=== PATIENT | female | born 1955 | race Caucasian/White ===

== ENCOUNTER 2019-08-04 08:26 | Emergency (ER) | payer OTHER, SELFPAY ==
[2019-08-04] VITALS (9 sets, daily range): BP systolic 119–179; BP diastolic 66–91; PULSE 80–98; RESP 16–20; TEMP 36.9; O2SAT 94–97; BMI 32.3
--- NOTE | 2019-08-04 08:44 | ED.CHESTPAIN ---
HPI - Chest Pain General Chief Complaint: Chest Pain Stated Complaint: UPPER CHEST PAIN UPPER AND LOWER JAW Time Seen by Provider: 08/04/19 08:44 Source: patient Mode of arrival: Ambulatory History of Present Illness HPI narrative: 64-year-old woman without significant medical history presents with chest pain and tightness. She 1st noted right shoulder pain last night around 11:00 p.m. she was getting ready for bed. It bothered her enough and began radiating up into her neck that she got up and reposition herself in a recliner chair in the front room. She noted when she did get up to walk around her brush her teeth that the pain got a bit worse however completely resolved while she was still up and moving. She had been doing some light gardening during the day and she attributed this as the source of her presumed musculoskeletal pain. The pain continued overnight and is described as more a pressure tightness worse with a very deep breath and with activity will radiate up into the neck and jaws both side no diaphoresis, dyspnea, left-sided pain and nothing that was sharp or stabbing. When her got up this morning and she explained the course of her symptoms overnight she was brought into the emergency department for further evaluation. Of note, her sister had a previously unremarkable past medical history until last April when she had some mild similar type chest pains ended up with a 4 way CABG and subsequent multiple pulmonary emboli with negative genetic testing following. Review of Systems Review of Systems Narrative: Denies ? fever ? cough ? cold ? chills ? chest pain ? dyspnea ? orthopnea ? wheezing ? abdominal pain ? change to bowel or bladder habits ? nausea vomiting ? skin changes ? rashes Patient History Medical History (Updated 08/04/19 @ 10:26 by Izzy Houston MD) Gout (Acute) Trigger finger (Acute) Surgical History (Updated 08/04/19 @ 09:04 by Izzy Houston MD) H/O tubal ligation (Acute) History of repair of congenital cleft palate (Acute) History of tonsillectomy (Acute) Social History Smoking Status: Former smoker Smoking Status: Former smoker Alcohol type: wine and hard liquor Substance Use Type: does not use Exam Narrative Exam Narrative: General: Healthy appearing, in no acute distress. Able to give a complete and coherent history. Well-nourished well-developed HEENT: Moist mucous membranes, normal sclera with reactive pupils, Neck: No JVD, supple Respiratory: Lungs are clear to auscultation, no wheezing no rales no rhonchi. Full and symmetrical air movement Cardiac: Regular rate and rhythm no murmurs no bruits Abdomen: Soft nontender good bowel tones, no flank pain Skin: Warm and dry, no rashes Neurologic: Grossly neurologically intact with no obvious asymmetries or abnormalities Extremities: No trauma, well perfused Psych: Cooperative, appropriate insight and affect Initial Vital Signs Initial Vital Signs: Vital Signs Temperature 98.4 F 08/04/19 08:29 Pulse Rate 93 H 08/04/19 08:29 Respiratory Rate 20 08/04/19 08:29 Blood Pressure 179/91 H 08/04/19 08:29 Pulse Oximetry 97 08/04/19 08:29 Course Orders Ordered: ED Orders 08/04/19 09:00 XR chest 1V Stat 08/04/19 09:28 Complete Blood Count AUTO DIFF Stat Comprehensive Metabolic Panel Stat D Dimer Stat Lipase Stat Troponin & CK Cardiac Panel Stat Discontinued Medications Aspirin (Aspirin Chew) 324 mg PO NOW ONE Stop: 08/04/19 09:01 Last Admin: 08/04/19 09:28 Dose: 324 mg Documented by: DOMINICKSENAdelita Sodium Chloride (Normal Saline 0.9%) 1,000 mls @ 150 mls/hr IV CONT SP Last Infusion: 08/04/19 10:43 Dose: 0 mls/hr Documented by: Infusion: 08/04/19 10:42 Dose: 0 mls/hr Documented by: Infusion: 08/04/19 10:41 Dose: 0 mls/hr Documented by: Admin: 08/04/19 09:31 Dose: 150 mls/hr Documented by: SANTIAGO Ketorolac Tromethamine (Toradol) 15 mg IV NOW ONE Stop: 08/04/19 10:13 Last Admin: 08/04/19 10:18 Dose: 15 mg Documented by: ROBIN Nitroglycerin (Nitrostat) 0.4 mg SL [id number] PRN PRN Reason: Chest Pain Last Admin: 08/04/19 09:49 Dose: 0.4 mg Documented by: Admin: 08/04/19 09:42 Dose: 0.4 mg Documented by: Admin: 08/04/19 09:28 Dose: 0.4 mg Documented by: SANTIAGO Vital Signs Vital signs: Vital Signs - 8 hr 08/04/19 09:28 08/04/19 09:32 08/04/19 09:37 Pulse Rate 81 98 H 92 H Respiratory Rate 18 18 Blood Pressure 148/86 H Blood Pressure [Left Arm] 132/81 133/70 Pulse Oximetry 95 08/04/19 09:42 08/04/19 09:49 08/04/19 10:00 Pulse Rate 92 H 88 81 Respiratory Rate 18 Blood Pressure 133/70 127/66 Blood Pressure [Left Arm] 128/77 Pulse Oximetry 94 08/04/19 10:21 08/04/19 10:30 Pulse Rate 80 81 Respiratory Rate 20 16 Blood Pressure Blood Pressure [Left Arm] 130/81 119/66 Pulse Oximetry 96 96 MDM - Chest Pain Medical Records Data Attestation: I reviewed the patient's medical records. Lab Data Attestation: I reviewed the patient's lab results. Result diagrams: 08/04/19 09:28 08/04/19 09:28 Labs: Lab Results 08/04/19 08/04/19 08/04/19 Range/Units 09:28 09:28 09:28 WBC 15.8 H (4.5-11.0) X10^3/uL RBC 4.70 (4.0-5.2) X10^6/uL Hgb 14.5 (12.0-16.0) g/dL Hct 42.3 (36-46) % MCV 90.0 (80-100) fL MCH 30.8 (26-34) PG MCHC 34.2 (30-36) % RDW 13.0 (11.6-14.8) % Plt Count 188 (150-400) X10^3/uL Neut % (Auto) 77.9 H (50-75) % Lymph % (Auto) 15.2 L (25-40) % [place] % (Auto) 6.7 (3-14) % Eos % (Auto) 0.0 L (2-4) % Baso % (Auto) 0.2 (0-2) % Neut # (Auto) 83933 H (8626-1799) /uL Lymph # (Auto) 2400 (6557-5171) /uL [place] # (Auto) 1100 H (0-900) /uL Eos # (Auto) 0 (0-450) /uL Baso # (Auto) 0 (0-100) /uL D-Dimer 216 (<230) ng/mL Sodium 139 (137-145) mmol/L Potassium 4.2 (3.4-5.1) mmol/L Chloride 106 (98-107) mmol/L Carbon Dioxide 24 (22-32) mmol/L BUN 17 (7-17) mg/dL Creatinine 0.75 (0.52-1.04) mg/dL Estimated GFR > 60.0 (>60) mL/min BUN/Creatinine Ratio 22.7 H (6-22) Glucose 127 H (80-110) mg/dL Calcium 9.7 (8.4-10.2) mg/dL Total Bilirubin 0.5 (0.2-1.3) mg/dL AST 22 (14-36) IU/L ALT 17 (<35) IU/L Alkaline Phosphatase 98 (38-126) U/L Total Creatine Kinase 55 (30-135) U/L CK-MB (CK-2) TNP CK-MB (CK-2) Rel Index TNP Troponin I < 0.012 (0.01-0.034) ng/mL Total Protein 7.8 (6.3-8.2) g/dL Albumin 4.3 (3.5-5.0) g/dL Globulin 3.5 (1.7-4.1) g/dL Albumin/Globulin Ratio 1.2 (1.0-2.8) Lipase 102 (23-300) U/L Imaging Data Chest x-ray: Radiologist's Impression: IMPRESSION: No evidence acute pulmonary process. Dictated by: Kevin Ellsworth M.D. on 08/04/2019 at 9:17 ECG Data Attestation: I personally reviewed and interpreted this ECG as follows: Interpretation: Sinus rhythm at a rate of 94 Normal axis, normal intervals No acute ischemic changes MDM Narrative Medical decision making narrative: 64-year-old woman presents with atypical chest pain that started in the right shoulder in his bothering her all night. It did not respond to nitroglycerin. Labs do not suggest of pulmonary embolism or acute coronary syndrome/STEMI. Second troponin is not repeated as her symptoms have been present for almost 11 hours at time of 1st draw. Significantly worse with a deep breath suggests a pleuritic component and the slight increase in white cell count and suggests an infectious component as well. Discharge Plan Departure Patient Disposition: Home Clinical Impression: Pleurisy Discharge Date/Time: 08/04/19 10:55 Instructions: DI for Pleurisy Activity Restrictions/Additional Instructions: Thank you for coming in today Your workup was very reassuring. There is no evidence that you are having a heart attack or heart attack type syndrome. There is no evidence for pulmonary embolism or other blood clots. Here chest x-ray was nice and normal with no obvious lung infiltrates and a normal size and shape part. Your blood work was equally reassuring. Your white blood cell count was slightly elevated and this can indicate an infection. The most common cause of pleurisy is infection. It is safe to exercise. Please treat your pleuritic pain with ibuprofen. Using 400 mg of ibuprofen (2 [id number] pills) and 1 Tylenol every 6 hours can be very helpful in controlling pain. I would expect the symptoms to be present but improving for about a week If you feel like you are getting worse or you are having more difficulty breathing, please feel free to return to the emergency department I hope you feel better
--- NOTE | 2019-08-04 09:00 | DI.RAD.S_ITS ---
PROCEDURE: XR CHEST 1V INDICATIONS: chest pain TECHNIQUE: One view of the chest was acquired. COMPARISON: None. FINDINGS: Surgical changes and devices: None. Lungs and pleura: Lungs are clear. No pleural effusions or pneumothorax. Mediastinum: Mediastinal contours appear normal. Heart size is normal. Bones and chest wall: No suspicious bony lesions. Overlying soft tissues appear unremarkable. IMPRESSION: No evidence acute pulmonary process. Dictated by: Kevin Ellsworth M.D. on 08/04/2019 at 9:17 Approved by: Kevin Ellsworth M.D. on 08/04/2019 at 9:17
[2019-08-04] MEDS: ASPIRIN 81 MG CHEW TAB 324 MG PO (09:28)
[2019-08-04] MEDS: NITROGLYCERIN 0.4 MG SL TAB SL ×3 (09:28→09:49)
[2019-08-04 09:31] LABS: Add Manual Diff / Slide Review NO; Basophils Absolute Auto 0 /uL (0-100); Basophils Percent Auto 0.2 % (0-2); Eosinophils Absolute Auto 0 /uL (0-450); Hematocrit 42.3 % (36-46); Hemoglobin 14.5 g/dL (12.0-16.0); Lymphocytes Absolute Auto 2400 /uL (1100-4500); Lymphocytes Percent Auto 15.2 % (25-40); Mean Corpuscular HGB Conc 34.2 % (30-36); Mean Corpuscular Hemoglobin 30.8 PG (26-34); Monocytes Absolute Auto 1100 /uL (0-900); Monocytes Percent Auto 6.7 % (3-14); Neutrophils Absolute Auto 12300 /uL (1500-7000); Neutrophils Percent Auto 77.9 % (50-75); Platelet Count 188 X10^3/uL (150-400); White Blood Cell Count 15.8 X10^3/uL (4.5-11.0)
[2019-08-04] MEDS: SODIUM CHLORIDE 0.9% 1,000 ML 150 ML IV (09:31)
[2019-08-04 09:40] LABS: D Dimer 216 ng/mL (<230)
[2019-08-04 09:51] LABS: Alanine Aminotransferase 17 IU/L (<35); Albumin 4.3 g/dL (3.5-5.0); Albumin Globulin Ratio 1.2 (1.0-2.8); Alkaline Phosphatase 98 U/L (38-126); Aspartate Aminotransferase 22 IU/L (14-36); BUN Creatinine Ratio 22.7 (6-22); Bilirubin Total 0.5 mg/dL (0.2-1.3); Blood Urea Nitrogen 17 mg/dL (7-17); Calcium 9.7 mg/dL (8.4-10.2); Carbon Dioxide 24 mmol/L (22-32); Chloride 106 mmol/L (98-107); Creatine Kinase 55 U/L (30-135); Estimated Glomerular Filt Rate > 60.0 mL/min (>60); Globulin 3.5 g/dL (1.7-4.1); Glucose 127 mg/dL (80-110); HEMOLYSIS < 15 (0-50); Lipase 102 U/L (23-300); Potassium 4.2 mmol/L (3.4-5.1); Sodium 139 mmol/L (137-145); Total Protein 7.8 g/dL (6.3-8.2)
[2019-08-04 10:02] LABS: Troponin I < 0.012 ng/mL (0.01-0.034)
[2019-08-04] MEDS: KETOROLAC 60 MG/2 ML VIAL 15 MG IV (10:18)
== END 2019-08-04 10:55 | disposition home or self-care (01) ==
PROVIDERS: Emergency Provider Emergency Medicine
DX: R09.1 Pleurisy (principal); R07.9 Chest pain, unspecified
CPT/HCPCS: 36415; 71045; 80053; 82550; 83690; 84484; 85025; 85379; 96361; 96374; 99284; J1885

== ENCOUNTER 2019-12-09 08:45 | Emergency (ER) | payer OTHER, SELFPAY ==
[2019-12-09] VITALS (7 sets, daily range): BP systolic 118–167; BP diastolic 63–77; PULSE 62–81; RESP 16–18; TEMP 36.8; O2SAT 94–99; BMI 31.9
--- NOTE | 2019-12-09 09:29 | ED.PEDGIA ---
HPI - Pediatric GI General Chief Complaint: Abdominal Pain Stated Complaint: abomdinal pain Time Seen by Provider: 12/09/19 09:09 Source: patient Mode of arrival: Ambulatory Limitations: no limitations History of Present Illness HPI narrative: The patient developed bandlike upper abdominal pain in the middle night last night. Pain started several hours after dinner, this was taken with vegetables. After initially also had ice cream. Although she describes the pain is a bandlike sensation upper abdomen, the focus of the pain is the right upper quadrant. She has nausea without emesis. She has no diarrhea constipation. She has a prior history of kidney stones, she denies dysuria or hematuria. She has no pain radiating to the lower abdomen. The pain does not radiate to the back. She has a prior history of hepatitis-A as a teenager, she has no chronic hepatic issues. She has a history of tubal ligation, no other abdominal or pelvic surgeries. She denies recent illness. She has no URI symptoms, cough or dyspnea. She has had no fever. Related Data Allergies Allergy/AdvReac Type Severity Reaction Status Date / Time spironolactone AdvReac Verified 12/09/19 09:56 Pediatric Review of Systems Limitations: All systems reviewed & are unremarkable except as noted in HPI and below Constitutional: Denies fever and chills Eyes: Reports other (No eye complaints) ENT: Reports other (No ENT complaints.); Denies sore throat Cardiovascular: Denies chest pain and palpitations Respiratory: Denies cough and dyspnea Gastrointestinal: Reports abdominal pain and nausea; Denies vomiting, diarrhea and constipation Genitourinary: Reports other (No hematuria.); Denies dysuria and polyuria Musculoskeletal: Denies back pain Integumentary: Denies rash and lesions Neurological: Denies headache, weakness, vertigo and numbness Psychiatric: Denies change in energy level Endocrine: Denies fatigue Hematological/Lymphatic: Denies easy bleeding Allergic/Immunologic: Denies urticaria Patient History Medical History Gout (Acute) Trigger finger (Acute) Surgical History H/O tubal ligation (Acute) History of repair of congenital cleft palate (Acute) History of tonsillectomy (Acute) Social History Smoking Status: Former smoker Smoking Status: Former smoker Alcohol type: wine and hard liquor Substance Use Type: does not use Pediatric Exam Initial Vital Signs Initial Vital Signs: Vital Signs Temperature 98.2 F 12/09/19 09:10 Pulse Rate 79 12/09/19 09:10 Respiratory Rate 18 12/09/19 09:10 Blood Pressure 167/77 H 12/09/19 09:10 Pulse Oximetry 99 12/09/19 09:10 General Limitations: no limitations General appearance: well-appearing, well-hydrated and well-nourished Head Head exam: normocephalic and atraumatic Eye Eye exam: Present normal appearance and other (No icterus) ENT ENT exam: normal oropharynx and mucous membranes moist Neck Neck exam: Present normal inspection and full ROM; Absent lymphadenopathy and thyromegaly Chest Chest inspection: Present normal inspection and symmetric chest wall rise Respiratory Respiratory exam: Present normal lung sounds bilaterally Cardiovascular Cardiovascular exam: Present regular rate, normal rhythm and normal heart sounds Abdominal Exam Abdominal exam: Present other (Obese. Right upper quadrant tenderness with guarding. No palpable masses. No distention. Normal bowel sounds. No lower abdominal tenderness.) Back Exam Back exam: Absent tenderness Neurological Exam Neurological exam: Present alert, oriented X3 and other (Motor and sensory exam are grossly normal.) Skin Skin exam: Present warm, dry, intact and normal color; Absent rash, cyanosis and diaphoresis Course Course Course Narrative: The patient has gallstones, with concern for evolving cholecystitis. After being medicated in the ER she is pain free. I have consult with surgery, Dr. Valdovinos, to expedite outpatient follow-up. Dr. Valdovinos has agreed to see the patient in clinic. Orders Ordered: ED Orders 12/09/19 09:30 Complete Blood Count AUTO DIFF Stat Comprehensive Metabolic Panel Stat Lipase Stat 12/09/19 09:38 US abdomen limited Stat EKG-12 Lead Stat Hydromorphone HCl (Dilaudid) 1 mg IV Q15MIN PRN PRN Reason: Pain, Severe (7-10) Last Admin: 12/09/19 10:02 Dose: 1 mg Documented by: RNDALE Sodium Chloride (Normal Saline 0.9%) 1,000 mls @ 150 mls/hr IV CONT SP Last Admin: 12/09/19 09:59 Dose: 150 mls/hr Documented by: MEGAN Discontinued Medications Ondansetron HCl (Zofran) 4 mg IV NOW ONE Stop: 12/09/19 09:38 Last Admin: 12/09/19 10:03 Dose: 4 mg Documented by: MEGAN Vital Signs Vital signs: Vital Signs - 8 hr 12/09/19 09:10 12/09/19 10:28 12/09/19 10:30 Temperature 98.2 F Pulse Rate 79 80 81 Respiratory Rate 18 Blood Pressure 167/77 H 122/72 Pulse Oximetry 99 95 94 12/09/19 11:00 12/09/19 11:30 12/09/19 12:00 Temperature Pulse Rate 62 64 Respiratory Rate Blood Pressure 118/64 119/63 124/66 Pulse Oximetry 94 98 12/09/19 12:30 Temperature Pulse Rate Respiratory Rate 16 Blood Pressure Pulse Oximetry Medical Decision Making Lab Data Result diagrams: 12/09/19 09:30 12/09/19 09:30 Labs: Lab Results 12/09/19 12/09/19 Range/Units 09:30 09:30 WBC 14.7 H (4.5-11.0) X10^3/uL RBC 4.67 (4.0-5.2) X10^6/uL Hgb 14.5 (12.0-16.0) g/dL Hct 42.0 (36-46) % MCV 90.0 (80-100) fL MCH 31.1 (26-34) PG MCHC 34.6 (30-36) % RDW 13.1 (11.6-14.8) % Plt Count 196 (150-400) X10^3/uL Neut % (Auto) 85.2 H (50-75) % Lymph % (Auto) 11.0 L (25-40) % [place] % (Auto) 3.6 (3-14) % Eos % (Auto) 0.0 L (2-4) % Baso % (Auto) 0.2 (0-2) % Neut # (Auto) 95625 H (0284-7303) /uL Lymph # (Auto) 1600 (4793-6430) /uL [place] # (Auto) 500 (0-900) /uL Eos # (Auto) 0 (0-450) /uL Baso # (Auto) 0 (0-100) /uL Sodium 137 (137-145) mmol/L Potassium 4.3 (3.4-5.1) mmol/L Chloride 103 (98-107) mmol/L Carbon Dioxide 25 (22-32) mmol/L BUN 19 H (7-17) mg/dL Creatinine 0.77 (0.52-1.04) mg/dL Estimated GFR > 60.0 (>60) mL/min BUN/Creatinine Ratio 24.7 H (6-22) Glucose 146 H (80-110) mg/dL Calcium 9.8 (8.4-10.2) mg/dL Total Bilirubin 0.5 (0.2-1.3) mg/dL AST 26 (14-36) IU/L ALT 23 (<35) IU/L Alkaline Phosphatase 102 (38-126) U/L Total Protein 7.8 (6.3-8.2) g/dL Albumin 4.5 (3.5-5.0) g/dL Globulin 3.3 (1.7-4.1) g/dL Albumin/Globulin Ratio 1.4 (1.0-2.8) Lipase 74 (23-300) U/L Imaging Data US - abdomen: Radiologist's Impression: [place] [address] Ultrasound Report Signed Patient: Nat Fields [facility]#: [id number] : 8Acct:[id number] Age/Sex: 64 / FDate of Service: 12/09/19 Loc: ED Accession Number: [id number] Procedure: US abdomen limited Ordering Provider: Zeke Zavala MD PROCEDURE: US ABDOMEN LIMITED INDICATIONS: RUQ pain TECHNIQUE: Real-time scanning was performed of the abdominal and retroperitoneal organs, with image documentation. COMPARISON: None. FINDINGS: Liver: Increased echogenicity is nonspecific, but most commonly encountered in the setting of diffuse hepatic steatosis. Gallbladder: Multiple small shadowing stones are seen within the gallbladder. The gallbladder wall is normal in thickness. There is no acute pericholecystic fluid. Sonographic Wilson sign was noted to be positive at the time of the exam. Biliary ducts: Intrahepatic bile ducts are non-dilated. Extrahepatic bile duct caliber measures 7 mm. Normal is 6-7 mm or less in diameter, or 10 mm or less post-cholecystectomy. Pancreas: Visualized portions of the pancreas are sonographically normal. Kidneys: There is possible mild right hydronephrosis versus extrarenal pelvis. No definite solid renal mass is seen. Miscellaneous: No free abdominal fluid. The bladder appears normal. IMPRESSION: 1. Cholelithiasis with positive sonographic Wilson sign, but without additional signs of cholecystitis. Recommend correlation with clinical and laboratory findings. The common bile duct is borderline in size. There is no intrahepatic biliary ductal dilatation. 2. Increased hepatic echogenicity noted possibly related to hepatic steatosis but other sources of hepatocellular disease cannot be excluded. Recommend clinical correlation. 3. Mild right hydronephrosis versus extrarenal pelvis. Dictated by: Kuldeep Zamora M.D. on 12/09/2019 at 10:32 Approved by: Kuldeep Zamora M.D. on 12/09/2019 at 10:42 Discharge Plan Departure Patient Disposition: Home Clinical Impression: Biliary colic Instructions: DI for Gallstones Activity Restrictions/Additional Instructions: You should be on a very low-fat diet. Drink plenty of fluids and stay well hydrated. I will give you contact information for a local surgeon, Dr. Siddiqui. Call for an appointment. If you have increasing pain or fever for seen surgery, return here. Referrals: Carlie Valdovinos MD [Physician] -
--- NOTE | 2019-12-09 09:38 | DI.US.S_ITS ---
PROCEDURE: US ABDOMEN LIMITED INDICATIONS: RUQ pain TECHNIQUE: Real-time scanning was performed of the abdominal and retroperitoneal organs, with image documentation. COMPARISON: None. FINDINGS: Liver: Increased echogenicity is nonspecific, but most commonly encountered in the setting of diffuse hepatic steatosis. Gallbladder: Multiple small shadowing stones are seen within the gallbladder. The gallbladder wall is normal in thickness. There is no acute pericholecystic fluid. Sonographic Wilson sign was noted to be positive at the time of the exam. Biliary ducts: Intrahepatic bile ducts are non-dilated. Extrahepatic bile duct caliber measures 7 mm. Normal is 6-7 mm or less in diameter, or 10 mm or less post-cholecystectomy. Pancreas: Visualized portions of the pancreas are sonographically normal. Kidneys: There is possible mild right hydronephrosis versus extrarenal pelvis. No definite solid renal mass is seen. Miscellaneous: No free abdominal fluid. The bladder appears normal. IMPRESSION: 1. Cholelithiasis with positive sonographic Wilson sign, but without additional signs of cholecystitis. Recommend correlation with clinical and laboratory findings. The common bile duct is borderline in size. There is no intrahepatic biliary ductal dilatation. 2. Increased hepatic echogenicity noted possibly related to hepatic steatosis but other sources of hepatocellular disease cannot be excluded. Recommend clinical correlation. 3. Mild right hydronephrosis versus extrarenal pelvis. Dictated by: Kuldeep Zamora M.D. on 12/09/2019 at 10:32 Approved by: Kuldeep Zamora M.D. on 12/09/2019 at 10:42
[2019-12-09 09:43] LABS: Add Manual Diff / Slide Review NO; Basophils Absolute Auto 0 /uL (0-100); Basophils Percent Auto 0.2 % (0-2); Eosinophils Absolute Auto 0 /uL (0-450); Hemoglobin 14.5 g/dL (12.0-16.0); Lymphocytes Absolute Auto 1600 /uL (1100-4500); Mean Corpuscular HGB Conc 34.6 % (30-36); Mean Corpuscular Hemoglobin 31.1 PG (26-34); Monocytes Absolute Auto 500 /uL (0-900); Monocytes Percent Auto 3.6 % (3-14); Neutrophils Absolute Auto 12500 /uL (1500-7000); Neutrophils Percent Auto 85.2 % (50-75); Platelet Count 196 X10^3/uL (150-400); Red Blood Cell Count 4.67 X10^6/uL (4.0-5.2); Red Cell Distribution Width 13.1 % (11.6-14.8); White Blood Cell Count 14.7 X10^3/uL (4.5-11.0)
[2019-12-09 09:49] LABS: Alanine Aminotransferase 23 IU/L (<35); Albumin 4.5 g/dL (3.5-5.0); Albumin Globulin Ratio 1.4 (1.0-2.8); Alkaline Phosphatase 102 U/L (38-126); Aspartate Aminotransferase 26 IU/L (14-36); BUN Creatinine Ratio 24.7 (6-22); Bilirubin Total 0.5 mg/dL (0.2-1.3); Blood Urea Nitrogen 19 mg/dL (7-17); Calcium 9.8 mg/dL (8.4-10.2); Carbon Dioxide 25 mmol/L (22-32); Chloride 103 mmol/L (98-107); Estimated Glomerular Filt Rate > 60.0 mL/min (>60); Globulin 3.3 g/dL (1.7-4.1); Glucose 146 mg/dL (80-110); HEMOLYSIS 22 (0-50); Lipase 74 U/L (23-300); Potassium 4.3 mmol/L (3.4-5.1); Sodium 137 mmol/L (137-145); Total Protein 7.8 g/dL (6.3-8.2)
[2019-12-09] MEDS: SODIUM CHLORIDE 0.9% 1,000 ML 150 ML IV (09:59)
[2019-12-09] MEDS: HYDROMORPHONE 1 MG INJ IV (10:02)
[2019-12-09] MEDS: ONDANSETRON 4 MG/2 ML INJ IV (10:03)
== END 2019-12-09 13:51 | disposition home or self-care (01) ==
PROVIDERS: Emergency Provider Emergency Medicine
DX: K80.50 Calculus of bile duct without cholangitis or cholecystitis without obstruction (principal)
CPT/HCPCS: 36415; 76705; 80053; 83690; 85025; 93005; 96374; 96375; 99284; J1170; J2405

== ENCOUNTER → 2020-01-08 14:34 | Outpatient (CLI) | payer OTHER, SELFPAY ==
[2020-01-09 13:16] LABS: COVID19 Sendout Not Detected (Not Detect)
== END ==
PROVIDERS: PCP Nurse Practitioner Family; Visit Provider Nurse Practitioner
DX: Z11.59 Encounter for screening for other viral diseases (principal)
CPT/HCPCS: 87635

== ENCOUNTER 2020-01-11 08:29 | Day surgery (SDC) | payer OTHER, SELFPAY ==
[2020-01-09 08:00] VITALS: BMI 33.1
[2020-01-11] VITALS (10 sets, daily range): BP systolic 100–133; BP diastolic 58–88; PULSE 52–70; RESP 12–20; TEMP 35.8–37.2; O2SAT 91–100; BMI 33.1
--- NOTE | 2020-01-11 | PATH_ITS ---
[facility] Accession Number: [id number] . 01 Material submitted: . gallbladder - GALLBLADDER . 01 Diagnosis: Gallbladder, Cholecystectomy: Chronic cholecystitis and cholelithiasis. Negative for dysplasia and malignancy. MRV 01/13/2020 1433 Local . 01 Electronically signed: . Minerva Whalen MD, Pathologist NPI- [id number] . 01 Gross description: . Received in formalin, labeled gallbladder, and consists of an 8.5 x 2.0 x 1.6 cm gallbladder with a 0.2 cm in diameter cystic duct. The serosa is rodriguez-pink with focal areas of disruption and fibrinous adhesions. Opening reveals multiple orange-brown bosselated choleliths ranging from 0.1 to 0.4 cm admixed with a thick white material, measuring 7.0 x 6.0 x 1.5 cm in aggregate. The mucosa is rodriguez-pink and trabeculated, and the wall thickness measures 0.1 cm. Plant [employer]ic sections are submitted, to include the en face margin (blue), body and fundus. ([id number]) /MRV 01/12/2020 1412 Local . 01 Pathologist provided ICD-10: K81.1 . 01 CPT . 882005 Performed at: [address], [place], [place] [id number] MD Lamont Velasquez MD Phone: [phone]
[2020-01-11] MEDS: ACETAMINOPHEN 325 MG TABLET 975 MG PO (09:11)
[2020-01-11] MEDS: LACTATED RINGERS 1,000 ML 42 ML IV (09:12)
[2020-01-11] MEDS: SCOPOLAMINE 1 PATCH TOP (09:12)
--- NOTE | 2020-01-11 09:28 | SUR.PREOP ---
indocyanine green given per order and protocol.
[2020-01-11] MEDS: Non-Formulary Medication (Indocyanine 25 MG) 25 EACH INJ (09:30)
[2020-01-11] MEDS: PIPERACILLIN-TAZO 3.375 GM/50 ML FROZ.PIGGY IV (10:05)
--- NOTE | 2020-01-11 10:09 | PM.PREOP ---
Pre-operative Note COVID-19 COVID-19 status: Negative Result date/Date tested (Pos, Neg/Pending): 01/08/20 Interval Note History & Physical reviewed/Exam performed by Physician: Yes Changes to H&P: No
--- NOTE | 2020-01-11 10:40 | SUR.OPER ---
Supine on padded OR bed, head on pillow, arms secured on padded arm boards at <90 degrees abduction, legs uncrossed, safety belt at thigh, tape over blanket over lower legs.
[2020-01-11] MEDS: BUPIVACAINE 0.25% W/ EPI 30 ML VIAL INJ (10:45)
--- NOTE | 2020-01-11 11:40 | P.OP_ITS ---
Operative Date/Time/Diagnoses Date of procedure: 01/11/20 Time of procedure: 11:40 Pre-op diagnosis: symptomatic cholelithiasis, chronic cholecystitis Post-op diagnosis: same Procedure & Clinicians Procedure: Laparoscopic cholecystectomy with Indocyanine cholangiography Same procedure as scheduled: Yes Indications: Symptomatic cholelithiasis, chronic cholecystitis Surgeon: Carlie Valdovinos Click Yes if Unassisted: Yes Anesthesia Type: General Operative Notes Findings: Impacted stone in the cystic duct, chronic adhesions to the surface of the gallbladder Specimen(s): other (Gallbladder and contents) Estimated Blood Loss (mL): 1 Procedure in detail: The patient was brought into the operating room and placed supine on the OR table. Sequential compression devices were placed on both legs and turned on. Appropriate perioperative antibiotics were given prior to the start of surgery. General anesthesia was induced the patient was intubated. The abdomen was prepped and draped in sterile fashion. Surgical time-out was conducted. Local anesthetic was injected under the skin just superior to the umbilicus and a 5 mm vertical incision was made at this site. The umbilical stalk was grasped with a Sai and elevated. A Veress needle was passed through the fascia into proper position. The position was tested with a saline drop test which was appropriate for intra-abdominal Veress needle placement. The abdomen was then insufflated in the usual fashion. Once insufflated to 15 mm Hg the Veress needle was removed and a 5 mm optical trocar was placed under direct vision using a 5 mm 30 degree scope. Once the camera was inside the abdomen I took a look around. There was no injury from port placement. Two additional ports were placed in a similar fashion in the right upper quadrant and a 10 mm port was placed in the epigastrium. Through the 2 lateral ports the gallbladder was grasped and elevated and the infundibulum was retracted laterally to the patient's right. There were adhesions of omentum to the surface of the gallbladder, which were taken down with L hook cautery. Once the adhesions were down, we were able to elevate the gallbladder and expose the gallbladder hilum for dissection of the cystic duct and cystic artery. There was quite a bit of dense scar tissue throughout the gallbladder hilum. This required tedious careful dissection to avoid injury to the bile ducts. Once the cystic duct and artery were completely dissected out and I was able to see liver behind and between both structures without any other structures in the way, giving us the critical view of safety. We then turned on the fluorescent lamp, we are able to the see the bile ducts under indocyanine green cholangiography. The gallbladder was not filling with indocyanine tagged bile, indicating that the cystic duct was obstructed. I was able to see the common bile duct down and away from the dissected cystic duct. I then palpated the cystic duct using a [place] grasper, and identified stone material within the duct. I was able to milk the stone material up the cystic duct in order to get clips below it, but I could not get it all the way into the gallbladder. So the gallbladder never entirely filled with indocyanine green bile. Once as satisfied that I had a good length of cystic duct without obstruction, I placed 3 clips on it below the stone, and 1 clip above the stone, and divided the duct through the stone material using [place]. I rinsed out the stone material and collected all the pieces. I then doubly clipped the artery and divided it with Metzenbaum scissors as well. Following this the gallbladder was gradually dissected free from the liver. There was quite a bit of hypervascularity of the scar tissue between the gallbladder and the liver. Several small vessels had to be controlled with hemoclips. Once the gallbladder was entirely freed, it was placed inside an Endo-Catch bag and removed through the epigastric port site. I did not have to enlarge the epigastric site in order to get the gallbladder out. Once it was out and passed off to the back table I then took another look inside the abdomen. I suctioned clean any remaining blood or fluid on the lateral side of the liver and in the subhepatic space. There was no active bleeding or leaking of bile from the gallbladder fossa or from the clipped stumps of the cystic duct and artery. At this point the insufflation was removed from the abdomen and the epigastric port site was c losed with 0 Vicryl suture in the fascia, 3 O Vicryl in the subcutaneous layers, and 4 Monocryl in the skin. The remaining port sites were closed with 4 Monocryl in the skin. Each port site was sealed with Dermabond. Local anesthetic was given at each of the port sites and in the fascia. This concluded the procedure. At this point the needle sponge and instrument counts were correct. The gallbladder was passed off the table for pathology. Patient was awakened from anesthesia and extubated. She was transferred to the postanesthesia care unit in stable condition. Complications: none Post-operative Condition: stable Disposition: PACU
[2020-01-11] MEDS: OXYCODONE IR 5 MG TABLET PO ×2 (12:16→12:50)
--- NOTE | 2020-01-11 14:32 | SUR.PHASEII ---
Pt stated pain was 2-3/10, requested 2nd oxy when offered. Pt stated she was still sleepy and out of it and not ready to go home. Allowed to sleep for about 1 hr after last admin of oxy. Pt was able to get dressed with SBA. D/c instructions provided to pt and her in car. Pt left in w/c with RN escort.
== END 2020-01-11 14:10 | disposition home or self-care (01) ==
PROVIDERS: PCP Nurse Practitioner Family; Referring Provider Nurse Practitioner Family; Visit Provider Surgery
PROC: 0FT44ZZ Resection of Gallbladder, Percutaneous Endoscopic Approach (ICD-10-PCS; CPT 47562; principal; 2020-01-11 10:15)
DX: K80.10 Calculus of gallbladder with chronic cholecystitis without obstruction (principal); E66.9 Obesity, unspecified; Z68.33 Body mass index [BMI] 33.0-33.9, adult; I10 Essential (primary) hypertension
CPT/HCPCS: 47563; J0330; J1100; J1885; J2250; J2405; J2543; J2704; J3010